=== PATIENT | male | born 1990 | race Caucasian/White ===

== ENCOUNTER 2023-09-18 20:57 | Emergency (ER) | payer MEDICAID, OTHER ==
[~2023-09-18] VITALS: Ht 177.8 cm; Wt 100.0 kg
[2023-09-18 21:15] VITALS: O2SAT 100
[2023-09-18] MEDS ORDERED: CEFAZOLIN 1000MG PREMIX 50 ML IV ONE (21:15)
[2023-09-18 21:20] VITALS: TEMP 98.8
[2023-09-18 21:29] LABS: BASOPHILS % 0.9 % (0.0-2.0); EOSINOPHILS % 2.6 % (0.0-5.0); HEMATOCRIT. 45.1 % (42.0-52.0); HEMOGLOBIN. 15.5 g/dL (14.0-18.0); LYMPHOCYTES % 43.1 % (20.0-50.0); MEAN CORPUSCULAR HEMOGLOBIN 30.5 pg (28.0-32.0); MEAN CORPUSCULAR HGB CONC 34.4 g/dL (31.0-37.0); MEAN CORPUSCULAR VOLUME 88.5 fL (80.0-94.0); MONOCYTES % 5.2 % (2.0-8.0); NEUTROPHILS % 48.2 % (40.0-76.0); PLATELET 321 x1000/uL (130-400); RED BLOOD CELL COUNT 5.09 mill/uL (4.7-6.1); RED CELL DISTRIBUTION WIDTH 13.3 % (11.6-14.6); WHITE BLOOD COUNT 12.1 x1000/uL (4.5-11.0)
[2023-09-18] MEDS: ONDANSETRON HCL 4MG/2ML INJ IV STA (21:34)
[2023-09-18] MEDS: TETANUS, DIPHTHERIA, PERTUSSIS VAC/PF 0.5ML (>10YR OLD) IM ONE (21:34)
[2023-09-18 21:35] VITALS: BP 148/70; PULSE 86; RESP 22
[2023-09-18 21:35] LABS: CARBON DIOXIDE 23 mEq/L (21-32); CHLORIDE 109 mEq/L (98-107); POTASSIUM 3.2 mEq/L (3.5-5.1); SODIUM 144 mEq/L (136-145)
[2023-09-18] MEDS: SODIUM CHLORIDE 0.9% 1,000 ML IV ONE (21:35)
[2023-09-18] MEDS: FENTANYL CITRATE/PF 50MCG/ML 2ML VIAL IV ONE (21:35)
[2023-09-18 21:38] LABS: CREATININE 1.1 mg/dL (0.6-1.3); GLUCOSE 129 mg/dL (70-105); UREA NITROGEN BLOOD 13 mg/dL (9-23)
[2023-09-18 21:40] LABS: ALANINE AMINOTRANSFERASE 17 IU/L (10-49); ALBUMIN 4.1 g/dL (3.2-4.8); ASPARTATE AMINOTRANSFERASE 25 IU/L (<34)
[2023-09-18 21:41] LABS: BILIRUBIN DIRECT 0.1 mg/dL (<=3.0); BILIRUBIN TOTAL 0.3 mg/dL (0.1-1.0)
== END 2023-09-18 22:01 | disposition short-term general hospital (02) ==
LOC: ER 20:57
DX: S71.132A Puncture wound without foreign body, left thigh, initial encounter (principal); S31.139A Puncture wound of abdominal wall without foreign body, unspecified quadrant without penetration into peritoneal cavity, initial encounter; E87.6 Hypokalemia; G89.11 Acute pain due to trauma; W34.09XA Accidental discharge from other specified firearms, initial encounter; Y93.89 Activity, other specified; Y92.89 Other specified places as the place of occurrence of the external cause; Y99.8 Other external cause status
CPT/HCPCS: 99291; 96374; 96361; 96375; 80076; 80048; 83690; 85025; 86900; 86901; 86920; 36415; 71045; 74018; 90715; 90471; J3010; J2405; J7030; J0690